=== PATIENT | female | born 1930 | race Two or more races ===

== ENCOUNTER 2018-10-13 07:47 | Outpatient (CLI) | payer OTHER ==
[~2018-10-13 07:47] MED LIST: DIPHENOXYLATE-A1 TA1 PO; NORVASC5 MG PO; PHENERGAN25 MG PO; TALADINE150 MG PO
== END 2018-10-13 07:55 | disposition home or self-care (01) ==
LOC: TOM 07:47
DX: R10.9 Unspecified abdominal pain (principal)

== ENCOUNTER 2018-10-15 08:20 | Outpatient (CLI) | payer OTHER | END 2018-10-15 08:27 | disposition home or self-care (01) | LOC: LAB 08:20 | DX: I10 Essential (primary) hypertension (principal); E11.9 Type 2 diabetes mellitus without complications; E03.8 Other specified hypothyroidism; E78.2 Mixed hyperlipidemia ==